=== PATIENT | female | born 1955 | race Caucasian/White ===

== ENCOUNTER → 2023-02-26 11:27 | Outpatient (BNVA) | payer OTHER, SELFPAY | PROVIDERS: Visit Provider Internal Medicine Cardiovascular Disease | DX: R07.9 Chest pain, unspecified (principal); R00.1 Bradycardia, unspecified | CPT/HCPCS: 93005 ==

== ENCOUNTER 2023-03-12 06:37 | Outpatient (CLI) | payer OTHER, SELFPAY ==
--- NOTE | 2023-03-12 07:00 | NMCV_ITS ---
NM bandar perf SPECT r/s* [id number] Ghazala Ramirez Age: 67 Gender: F : 1955 Exam Date: 03/12/2023 07:31 Ordering Phys: Gumaro Montgomery MD ([email or web address]) Technologist: AUSTIN Souza Exam Location: [facility] Indications: Chest Pain STRESS TEST Please see separate stress test report in [facility] for full findings IMAGE PROTOCOL Rest/Stress 1 Radiopharmaceutical Dose (mCi) Administration Site Administered by Rest: Tc-99m 10.9 IV [place] Sestamibi Stress:Tc-99m 32.6 IV [place] Sestamibi Rest: 12-Mar-2023 60 Discovery 630 Stress: 12-Mar-2023 30 Discovery 630 Radiopharmaceutical was injected at 87 % maximum heart rate. Images obtained in supine and prone position. SPECT RESULTS Technical Quality: Good Raw Data Analysis: Normal, Breast attenuation Image Corrections: No attenuation or motion correction applied Summed Stress Score: 8 Summed Rest Score: 5 Summed Difference Score: 4 PERFUSION FINDINGS Small area of moderately decreased tracer uptake was noted in the mid inferolateral, apical lateral, apical inferior, apical septal and LV apex. Some reversibility was noted in the apical inferior, septal and lateral segments segmental wall motion analysis revealing no gross wall motion abnormalities FUNCTIONAL RESULTS (calculated via Gated SPECT) Stress Image LV EF (%): 86 Stress EDV (mL):65 TID: 0.79 Stress ESV (mL):9 FUNCTIONAL FINDINGS: Segmental wall motion analysis revealing no gross wall motion abnormalities IMPRESSIONS 1. Myocardial perfusion imaging revealing small area of moderately decreased tracer uptake involving the apex and inferolateral segments with some reversibility suggesting myocardial scarring in the distribution of the distal right coronary artery/circumflex artery with subtle areas of ischemia. 2. Normal LV ejection fraction of 86%. 3. LV wall motion analysis revealing no gross wall motion abnormalities. 4. Normal LV volume No similar previous studies are available for comparison Dr Gumaro Montgomery MD FACC (Electronically Signed) Final Date: 12 March 2023 20:03 S
[2023-03-12 07:29] VITALS: BMI 30.2
--- NOTE | 2023-03-12 07:31 | ECG_ITS ---
[facility] Test Date: 2023-03-12 Pat Name: Ghazala Ramirez Department: Room: Gender: Female [employer] Tender: : 1955 Requested By: Gumaro Montgomery Order Number: [id number] Elizabeth MD: Gumaro Montgomery M.D. Interpretive Statements NAME OF STUDY: EXERCISE SESTAMIBI STRESS TEST INDICATION: Chest Pain, PROCEDURE: The baseline electrocardiogram showed normal sinus rhythm with a poor R wave progression. Some nonspecific T wave changes.. At the baseline, the patient's blood pressure was 143/85 mm Hg with a heart rate of 69. The patient exercised for 3 minutes and 30 seconds on a standard [place] protocol. Patient attained a maximum heart rate of 138 beats per minute(89% of the maximum predicted heart rate) with a blood pressure at the peak exercise of 197/98 mm Hg. The EKG at the peak exercise revealed some nonspecific ST-T changes.. Patient did not have any chest pain or any significant arrhythmis with the exercise Sestamibi was injected 1 minute prior to the peak exercise During the recovery phase, there were no new changes. Blood pressure at the end of the recovery phase was 128/79 mm Hg with a heart rate of 83 per minute. CONCLUSION: 1. Nonspecific EKG changes with the treadmill exercise 2. No exercise-induced chest pain or cardiac arrhythmia 3. Good impaired exercise tolerance, attained a maximum of METs 4. Hypertensive response to exercise 5. Sestamibi/Sestamibi perfusion results pending; see separate report. Electronically Signed On 03-18-2023 11:25:27 CDT by Gumaro Montgomery M.D. [id number]
[2023-03-12 08:51] VITALS: BP 128/79; PULSE 80
== END 2023-03-12 06:38 | disposition home or self-care (01) ==
PROVIDERS: Visit Provider Internal Medicine Cardiovascular Disease
DX: Z98.61 Coronary angioplasty status (principal)
CPT/HCPCS: 36415; 78452; 93017; A9500

== ENCOUNTER 2023-12-24 13:55 | Outpatient (CLI) | payer OTHER, SELFPAY ==
--- NOTE | 2023-12-24 14:00 | MM_ITS ---
WS: [id number] BILATERAL 3D TOMOSYNTHESIS DIGITAL SCREENING MAMMOGRAPHY WITH CAD CLINICAL INFORMATION: SCREENING HISTORY: Screening mammogram. No current complaints. COMPARISON: 2014 TECHNIQUE: Bilateral CC and MLO views. FINDINGS: The breasts are composed of heterogeneous fibroglandular density tissue, which can limit the detectio n of small underlying mass lesions. No suspicious mass, asymmetry, calcifications, or architectural d istortion. No evidence of malignancy. Incidental punctate calcifications. MM/[place] [id number] IMPRESSION: BI-RADS: 2-Benign FOLLOW UP: 1 Year Follow-up Recommend return to annual screening mammography.
== END 2023-12-24 13:56 | disposition home or self-care (01) ==
LOC: MOBLMAM 14:01
PROVIDERS: PCP Family Medicine; Visit Provider Family Medicine
DX: Z12.31 Encounter for screening mammogram for malignant neoplasm of breast (principal); R92.323 Mammographic fibroglandular density, bilateral breasts; R92.333 Mammographic heterogeneous density, bilateral breasts; R92.1 Mammographic calcification found on diagnostic imaging of breast
CPT/HCPCS: 77063; 77067

== ENCOUNTER → 2024-01-14 13:39 | Outpatient (BNVA) | payer OTHER, SELFPAY | PROVIDERS: PCP Family Medicine; Referring Provider Family Medicine; Visit Provider Obstetrics & Gynecology | DX: N88.8 Other specified noninflammatory disorders of cervix uteri (principal) | CPT/HCPCS: 87624; 88305 ==

== ENCOUNTER 2024-03-05 05:57 | Day surgery (SDC) | payer OTHER, SELFPAY ==
[2024-03-05] VITALS (10 sets, daily range): BP systolic 128–167; BP diastolic 67–85; PULSE 58–89; RESP 16–18; TEMP 36.1–36.2; O2SAT 95–100; BMI 30.5
--- NOTE | 2024-03-05 00:40 | W.PM.OPSFHP ---
Same Day Surgery H&P Indication for Procedure/HPI DATE OF PROCEDURE: March 05, 2024 CHIEF COMPLAINT/INDICATIONFOR SURGICAL PROCEDURE: abnormal uterine bleeding cervical mass PREOP DIAGNOSIS: abnormal uterine bleeding; cervical mass PLANNED PROCEDURE: Operation Date: 03/05/24 07:00 Proposed Procedures p Hysteroscopy Hysteroscopy w/ Endometrial Sampling 26118, N84.1, 35224(Not Applicable) - Qasim Kolb MD s Poylpectomy(Not Applicable) - Qasim Kolb MD s Cervical Conization(Not Applicable) - Qasim Kolb MD 68 y.o. last normal menstrual period many years ago began to have bleeding in December 2023 also found to have a friable cervical mass Medications/Allergies* Allergies/Adverse Reactions Allergy/AdvReac Type Severity Reaction Status Date / Time No Known Allergies Allergy Verified 01/28/24 07:44 Pertinent History/Comorbid Conditions* Medical History (Updated 01/21/24 @ 23:57 by Qasim Kolb MD) Cardiomyopathy Palpitations Takotsubo cardiomyopathy Hypertension Surgical History (Updated 09/09/23 @ 12:17 by Gumaro Montgomery MD) H/O laminectomy History of back surgery Family History (Updated 01/14/24 @ 07:43 by Ami Gillespie LPN) Diabetes Grandmother Mother CAD (coronary artery disease) Father Grandmother Mother Heart disease Father Grandmother Mother Hypertension Father Grandmother Denies family history of Colon cancer Ovarian cancer Prostate cancer Breast cancer Uterine cancer Thyroid disease Stroke Social History Smoking and tobacco/nicotine status: never used tobacco/nicotine Alcohol intake: current Alcohol intake frequency: holidays/special occasions only Pertinent Exam Findings alert, oriented x 3, clear to auscultation bilaterally and regular rate & rhythm Pertinent Data Pelvic sono 12-25-23 uterus 7.7 x 5.2 x 3.5 cm Endometrium 5 mm, WNL 2.2 cm fibroid 2.9 cm cervical mass Normal right ov Left ov not seen Pap 01-14-24 NILM; negative HPV Recommendations Surgery/Procedure today Coding Level of Care Code Acute Code for Chg Fwd Time Spent (min) 20
--- NOTE | 2024-03-05 06:46 | W.PM.OPSUD ---
Surgery/Procedure H&P Update DATE OF PROCEDURE: March 05, 2024 DATE H&P PERFORMED: 03/05/24 H&P UPDATE INFORMATION: I have reviewed H&P completed within last 30 days, I have examined patient prior to procedure and No changes to prior documentation PREOP DIAGNOSIS: abnormal uterine bleeding; cervical mass PLANNED PROCEDURE: Operation Date: 03/05/24 07:00 Proposed Procedures p Hysteroscopy Hysteroscopy w/ Endometrial Sampling 27302, N84.1, 94717(Not Applicable) - Qasim Kolb MD s Poylpectomy(Not Applicable) - Qasim Kolb MD s Cervical Conization(Not Applicable) - Qasim Kolb MD
--- NOTE | 2024-03-05 06:47 | P.ANESASSM_ITS ---
Pre-Anesthetic Assessment Height/Weight: Height 1.63 m Weight 80.739 kg O2 Del Method Room Air 03/05/24 06:35 Preop Diagnosis: abnormal uterine bleeding; cervical mass Operation Date: 03/05/24 07:00 Proposed Procedures p Hysteroscopy Hysteroscopy w/ Endometrial Sampling 10129, N84.1, 53077(Not Applicable) - Qasim Kolb MD s Poylpectomy(Not Applicable) - Qasim Kolb MD s Cervical Conization(Not Applicable) - Qasim Kolb MD Familial anesthetic complications: None Was Beta Jos taken within 24 hours: N/A Was Clonidine taken within 24 hours: N/A Last intake: Intake Last Liquid Date 03/04/24 Last Liquid Time 20:00 Last Solid Date 03/04/24 Last Solid Time 20:41 Social No alcohol and No tobacco Exam alert, oriented x 3, clear to auscultation bilaterally and regular rate & rhythm Airway Mallampati: Class I Dentition: full CV/HEM Hypertension takotsubo's - back to baseline, no CP, SOB, can do full activity GI Gastroesophageal Reflux Disease (well-controlled) Metabolic Hyperlipidemia Anesthetic Plan ASA status: 3 Anesthesia: General Risk of > 500 ml blood loss (7ml/kg in children): No Medications/Allergies Home Medications Medication Instructions Recorded Confirmed Last Taken Type carvedilol 3.125 mg tablet See Rx Instructions .Route 05/28/23 03/04/24 03/04/24 Rx .COMPLEX #180 tabs valsartan 320 mg tablet 320 mg PO DAILY #90 tabs 11/27/23 03/04/24 03/04/24 Rx amlodipine 2.5 mg tablet See Rx Instructions .Route 01/16/24 03/04/24 03/04/24 Rx .COMPLEX #90 tabs Allergies Allergy/AdvReac Type Severity Reaction Status Date / Time No Known Allergies Allergy Verified 01/28/24 07:44 [facility] Anesthesia Medical History Cardiomyopathy Palpitations Takotsubo cardiomyopathy Hypertension Surgical History H/O laminectomy History of back surgery Family History Father CAD (coronary artery disease) Hypertension Heart disease Grandmother CAD (coronary artery disease) Diabetes Hypertension Heart disease Mother CAD (coronary artery disease) Diabetes Heart disease Denies family history of Colon cancer Ovarian cancer Prostate cancer Breast cancer Uterine cancer Thyroid disease Stroke Social History Smoking and tobacco/nicotine status: never used tobacco/nicotine Alcohol intake: current Alcohol intake frequency: holidays/special occasions only Data Anesthesia Cardiac Studies: Sestamibi Stress Test (Cardiology) 03/12
[2024-03-05] MEDS: sodium chloride 0.9% 1,000 ML 30 ML IV (07:00)
[2024-03-05] MEDS: vasopressin 20 unit/mL INJ INJECTION (07:28)
--- NOTE | 2024-03-05 08:10 | P.OP_ITS ---
Operative Report Date of procedure: March 05, 2024 Pre-op diagnosis: abnormal uterine bleeding cervical mass Post-op diagnosis: same Post-op findings: normal endometrial cavity No polyps / fibroids Minimal endometrial tissue 3-4 cm polypoid endocervical mass Procedure done: hysteroscopy Curettage of uterus Conization of cervix using loop electrical excision Implants: none Specimens removed/disposition: endocervical polypoid mass endometrial curettings Surgeon: Qasim Kolb MD Anesthesia: MAC Estimated blood loss (mL): 0 Complications: none Findings: normal endometrial cavity No polyps / fibroids Minimal endometrial tissue 3-4 cm polypoid endocervical mass Condition: stable Disposition: PACU Brief History: 68 y.o. with new onset of postmenopausal bleeding and cervical mass Procedure: Informed consent signed. Patient was taken to the operating room. Anesthesia was induced. Patient was placed in dorsolithotomy position, prepped and draped for hysteroscopy. A bivalve speculum was placed in the vagina. A 3-4 cm endocervical polypoid mass was seen. This was removed mostly with a ring forceps. The anterior lip of the cervix was grasped with a sharp-toothed tenaculum. The cervix was already widely dilated. A hysteroscope was placed into the endometrial cavity. The endometrial cavity was seen to be normal. There were no polyps or fibroids. There was a minimal amount of endometrial tissue. The hysteroscope was then removed. Endometrial curettage was done with a sharp curette. Endometrial ti ssue was sent to pathology. The cervix was then infiltrated at the cervicovaginal junction with 20 U of vasopressin in 10 cc of sterile normal saline to decrease bleeding. The conization of the cervix was then performed with an electrosurgical loop, to a depth of approximately 5-7 mm, thereby also removing the remainder of the endocervical polyp. This was sent to pathology. No bleeding was seen. The sharp-toothed tenaculum was removed. There was no bleeding from the endometrial cavity or cervix. The patient was then placed supine and awakened and taken to the PACU. Postop condition: stable EBL: none Sponge and instruments counts were normal x 2 Complications: none
[2024-03-05] MEDS: fentaNYL 50 mcg/mL INJ 2mL IVP (08:48)
--- NOTE | 2024-03-05 09:15 | ANE.PACU2 ---
Inpatient post-anesthesia follow up: Airway intact: Yes Vital signs: Temperature 96.9 F Pulse Rate 78 Respiratory Rate 18 Blood Pressure 149/67 Pulse Oximetry 98 Oxygen Delivery Me thod Room Air Oxygen Flow Rate 8 Fraction of Inspir ed Oxygen Hydration adequate: Yes Nausea and vomiting: No Pain level: 1 Mental status: Baseline
== END 2024-03-05 09:18 | disposition home or self-care (01) ==
PROVIDERS: PCP Family Medicine; Visit Provider Obstetrics & Gynecology
PROC: 0UJD8ZZ Inspection of Uterus and Cervix, Via Natural or Artificial Opening Endoscopic (ICD-10-PCS; CPT 58555; principal; 2024-03-05 07:00)
PROC: (CPT 57522; 2024-03-05 07:00)
PROC: 0UBC7ZZ Excision of Cervix, Via Natural or Artificial Opening (ICD-10-PCS; CPT 57520; 2024-03-05 07:00)
DX: N95.0 Postmenopausal bleeding (principal); N72 Inflammatory disease of cervix uteri; I10 Essential (primary) hypertension; E78.5 Hyperlipidemia, unspecified
CPT/HCPCS: 57522; 58558; 88307; J1100; J1885; J2371; J2405; J2704; J3010; J3490; J7030